=== PATIENT | female | born 1945 | race Caucasian/White ===

== ENCOUNTER → 2016-06-09 | Outpatient (CLI) | payer BC ==
[~2016-06-09] MED LIST: ASPI-461 PO; CHOL2000 PO; COEN200C4 PO; LITH300T2 PO; MUSHROOM PO; OMEGCAP2 PO; RBTDACL PO; SELE200C3 PO; TRAZ1TAB8 PO; TURM1CAP PO; [UNRECOGNIZED DRUG - CODE] PO
== END | disposition home or self-care (01) ==
LOC: C.MAMM 09:33
PROVIDERS: ATTEND Family Medicine
DX: M85.80 Other specified disorders of bone density and structure, unspecified site (principal); Z78.0 Asymptomatic menopausal state; E21.3 Hyperparathyroidism, unspecified; Z87.828 Personal history of other (healed) physical injury and trauma

== ENCOUNTER → 2016-11-13 | Outpatient (CLI) | payer BC ==
--- NOTE | 2016-11-13 12:16 | DIAGNOSTIC IMAGING REPORT ---
CHEST 2 VIEWS ROUTINE CLINICAL HISTORY: R05 CxmllA75.82 Post-nasal dripH57.8 Itchy eyesJ30.9 Allergic rh cough. Dyspnea. COMPARISON STUDY: 05/09/2013 FINDINGS: The bones soft tissues and hemidiaphragms are normal. The cardiomediastinal silhouette is normal. The lungs are clear. The pulmonary vasculature is normal. IMPRESSION: Negative chest. The above report was generated using voice recognition software. It may contain grammatical, syntax or spelling errors. Electronically signed by: Yimi Horner M.D. 11/13/2016 12:15 PM Dictated Date/Time: 11/13/2016 12:14 PM
--- NOTE | 2016-11-13 12:18 | DIAGNOSTIC IMAGING REPORT ---
PARANASAL SINUSES 4 VIEWS CLINICAL HISTORY: Cough. Postnasal drip. Allergic rhinitis. FINDINGS: 4 views of the paranasal sinuses are obtained. No prior studies are available for comparison at the time of dictation. There is no radiographic evidence of paranasal sinus disease. The mastoid air cells appear well-pneumatized. The bony orbits are intact as visualized. The imaged calvarium is within normal limits. Bilateral hearing devices are noted adjacent to the temporal bones. IMPRESSION: There is no radiographic evidence of paranasal sinus disease. Electronically signed by: Efren Martin M.D. 11/13/2016 12:17 PM Dictated Date/Time: 11/13/2016 12:16 PM
== END | disposition home or self-care (01) ==
LOC: C.RAD1850 11:49
PROVIDERS: ATTEND Internal Medicine Pulmonary Disease
DX: R05 Cough (principal); R09.82 Postnasal drip; H57.8 Other specified disorders of eye and adnexa; J30.9 Allergic rhinitis, unspecified

== ENCOUNTER 2019-05-02 17:01 | Observation (INO) ==
[2019-05-02] MEDS ORDERED: SODIUM CHLORIDE 0.9% 1000ML 1,000 ML IV SCH (18:30)
[2019-05-02 18:33] LABS: Basophils # (auto) 0.01 K/uL (0-0.2); Basophils % (auto) 0.2 %; Eosinophils # (auto) 0.05 K/uL (0-0.5); Eosinophils % (auto) 0.8 %; Hematocrit (blood only) 42.2 % (37-47); Hemoglobin 14.5 g/dL (12.0-16.0); Immature Granulocytes # (auto) 0.03 K/uL (0.00-0.02); Immature Granulocytes % (auto) 0.5 %; Lymphocytes # (auto) 0.97 K/uL (1.2-3.4); Lymphocytes % (auto) 16.1 %; Mean Corpuscular Hemoglobin 31.8 pg (25-34); Mean Corpuscular Hgb Conc 34.4 g/dL (32-36); Mean Corpuscular Volume 92.5 fL (80-100); Mean Platelet Volume 9.2 fL (7.4-10.4); Monocytes # (auto) 0.64 K/uL (0.11-0.59); Monocytes % (auto) 10.6 %; Neutrophils # (auto) 4.32 K/uL (1.4-6.5); Neutrophils % (auto) 71.8 %; Platelet Count 336 K/uL (130-400); RDW Coefficient of Variation 13.1 % (11.5-14.5); RDW Standard Deviation 43.9 fL (36.4-46.3); Red Blood Count 4.56 M/uL (4.2-5.4); White Blood Count 6.02 K/uL (4.8-10.8)
[2019-05-02 18:45] LABS: INR 1.1 (0.9-1.1); Prothrombin Time 11.1 Seconds (9.0-12.0)
[2019-05-02 18:49] LABS: Alanine Aminotransferase 38 U/L (12-78); Albumin Level 3.9 gm/dl (3.4-5.0); Aspartate Aminotransferase 20 U/L (15-37); BUN Creatinine Ratio 6.7 (10-20); Blood Urea Nitrogen 8 mg/dl (7-18); Calcium 9.9 mg/dl (8.5-10.1); Carbon Dioxide 27 mmol/L (21-32); Chloride 109 mmol/L (98-107); Est GFR (African American) 52.2; Est GFR (Non-African American) 45.1; Glucose 117 mg/dl (70-99); Potassium 4.2 mmol/L (3.5-5.1); Sodium 141 mmol/L (136-145)
[2019-05-02 18:54] LABS: Albumin Globulin Ratio 1.1 (0.9-2); Alkaline Phosphatase 109 U/L (45-117); Bilirubin,Total 0.3 mg/dl (0.2-1); Globulin 3.5 gm/dl (2.5-4.0); Total Protein 7.4 gm/dl (6.4-8.2); Troponin I < 0.015 ng/ml (0-0.045)
--- NOTE | 2019-05-02 19:02 | CT Scan Report ---
CT head/brain wo con CT DOSE: 638.56 mGycm HISTORY: Mental status change ams TECHNIQUE: Multiaxial CT images of the head were performed without the use of intravenous contrast. A dose lowering technique was utilized adhering to the principles of ALARA. Comparison: None. Findings: The paranasal sinuses and mastoid air cells are clear. Considerable right and to a lesser e xtent left frontal atrophy. Mild chronic small vessel change. The ventricular system is midline. No evidence for acute intracranial hemorrhage. Impression: Frontal lobe atrophy. Chronic small vessel change. No acute process. ACT 112: Negative or not required by law. The above report was generated using voice recognition software. It may contain grammatical, syntax or spelling errors. Electronically signed by: Yimi Horner M.D. 05/02/2019 7:01 PM
--- NOTE | 2019-05-02 19:27 | XRay Report ---
XR chest 1V portable CLINICAL HISTORY: ams mental status change COMPARISON STUDY: 04/26/2019 FINDINGS: The bones soft tissues and hemidiaphragms are normal. The cardiomediastinal silhouette is n ormal. The lungs are clear. The pulmonary vasculature is normal. IMPRESSION: Negative chest. ACT 112: Negative or not required by law. The above report was generated using voice recognition software. It may contain grammatical, syntax or spelling errors. Electronically signed by: Yimi Horner M.D. 05/02/2019 7:26 PM
[2019-05-02] MEDS ORDERED: cefTRIAXone SODIUM 1000MG/50ML D5W IV ONE (20:28)
[2019-05-02] MEDS: cefTRIAXone SODIUM 1,000 MG in DEXTROSE 5% 50 ML IV SCH (20:31)
[2019-05-02 20:33] LABS: Appearance Urine Clear (Clear); Bilirubin Urine Negative (Negative); Blood Urine Negative (Negative); Color Urine Yellow; Glucose Urine UA Negative (Negative); Ketones Urine Negative (Negative); Leukocyte Esterase Urine Negative (Negative); Nitrite Urine Negative (Negative); Protein Urine Negative (Negative); Specific Gravity Urine 1.005 (1.000-1.030); Urobilinogen Urine Negative (Negative); pH Urine 7.5 (4.5-7.5)
--- NOTE | 2019-05-02 21:18 | CT Scan Report ---
CT chest wo con CT DOSE: 184.26 mGy.cm HISTORY: Dyspnea Cough, known influenza, looking for pneumonia. TECHNIQUE: Multiaxial CT images of the chest were performed without contrast. A dose lowering techni que was utilized adhering to the principles of ALARA. COMPARISON: None. FINDINGS: The lungs are clear. The mediastinal vascular structures are within normal limits. No media stinal or hilar lymphadenopathy. No pleural effusion or pneumothorax. Limited views of the upper abdo men demonstrate a normal liver and spleen. IMPRESSION: No acute process. ACT 112: Negative or not required by law. The above report was generated using voice recognition software. It may contain grammatical, syntax or spelling errors. Electronically signed by: Yimi Horner M.D. 05/02/2019 9:17 PM
--- NOTE | 2019-05-02 21:19 | History & Physical Report ---
Date of Service May 02, 2019 Assessment & Plan (1) Confusion: Obs tele May just be secondary to influenza A Also considering UTI or pneumonia. (2) Fever: Check CT of chest. As she is having non-productive cough. Await U/A Continue IV Rocephin until further results noted. (3) Influenza A: Completed course of Tamiflu. (4) Bipolar disorder: Continue Trazodone, oxcarbazepine, and lithium. (5) Hypothyroidism: Continue levothyroxine. History of Present Illness 73 y/o female had recently been treated for + flu A and UTI with Tamiflu and Cefdinir. The patient continues to have confusion per patients . Her temp spikes have been defervescing. did note rigors and increased confusion. She has completed course of Tamiflu. She is continuing with Cefdinir. Patient reports that she has a non-productive cough. Otherwise has mostly been doing better. Primary Care Provider: Kp Tirado MD Allergies Allergy/AdvReac Type Severity Reaction Status Date / Time amitriptyline Allergy Mild RASH Verified 04/26/19 22:16 sulfamethoxazole Allergy Mild RASH Verified 04/26/19 22:16 trimethoprim Allergy Mild RASH Verified 04/26/19 22:16 Bactrim Allergy Unknown RASH Verified 05/10/13 15:59 Home Medications Home Medications Medication Instructions Recorded Confirmed Type ferrous sulfate [iron] 325 mg PO DAILY PRN 09/27/18 05/02/19 History levothyroxine 50 mcg PO QAM 09/27/18 05/02/19 History lithium carbonate 300 mg PO BID 09/27/18 05/02/19 History omega 1-ipa-pkr-fish oil [[place]-3] 1 cap PO DAILY 09/27/18 05/02/19 History oxcarbazepine [Trileptal] 150 mg PO BID 09/27/18 05/02/19 History trazodone 150 mg PO HS 09/27/18 05/02/19 History cefdinir 300 mg PO BID 10 Days #20 cap 04/26/19 05/02/19 Rx Past Med/Surg History Medical History Anemia Depression reason for lithium/trileptal Hearing deficit History of colon polyps Hypothyroidism current levels are normal Insomnia Kidney stones Osteoarthritis Prediabetes Surgical History History of colonoscopy History of dilatation and curettage History of laparoscopy History of surgery on right wrist bone spur removal History of tonsillectomy and adenoidectomy Family History Father Family history of diabetes mellitus Other No family history of adverse response to anesthesia Social History Preferred Language: Tongan Communication Ability: Effective Table Tender Required: No Beliefs That Will Affect Care: None Current Living Situation: Spouse Feels Safe at Home: Yes Safety Concerns: Feels Safe At This Time Smoking Status: Never smoker Second Hand Exposure: Yes (mother smoked) ; Hx Alcohol Use: No Hx Substance Use: No Review of Systems Review of Systems: Constitutional- no weight loss Eyes- no acute visual changes ENT- no sinus drainage; no pharyngitis Pulmonary- As in HPI Cardiac- no chest pain, no palpitations, no orthopnea, no dependent edema GI- no nausea, no vomiting, no diarrhea, no melena, no hematochezia - + chronic dysuria and urgency. Musculoskeletal- no arthralgias, no myalgias Derm- no rashes, no new skin lesions. Hematologic- no unusual bruising, no unusual bleeding Lymphatics- no adenopathy Endocrine- no polyuria or polydipsia; no heat or cold intolerance Neuro- no headaches, no focal neurologic symptoms Psych- no anxiety, no depression Physical Exam Physical Exam: General- adult female, NAD, confused. Head- atraumatic Eyes- PERRL, EOMI, anicteric ENT- oropharynx clear Neck- supple, no JVD, no adenopathy, no thyromegaly. Lungs- CTA b/l No R/R/W. Heart- regular rhythm; no murmur, no gallop, no rub appreciated Abdomen- normal bowel sounds, soft, nontender. Extremities- no pretibial edema, no calf tenderness; peripheral pulses intact Neuro- alert, oriented x 2 (person and place); PERRL, EOMI; no facial palsy; no dysarthria; director of video analytics II-XII grossly intact, non-focal. Skin- warm & dry Results & Data Vital Signs (Past 12 Hours) Vital Signs Temp Pulse Pulse Resp BP BP Pulse Ox 05/02/19 20:06 63 16 156/67 H 96 05/02/19 19:14 59 L 16 168/85 H 96 05/02/19 17:10 36.3 C L 70 18 175/81 H 90 Laboratory Results Laboratory Results WBC 6.02 K/uL (4.8-10.8) 05/02/19 18:25 RBC 4.56 M/uL (4.2-5.4) 05/02/19 18:25 Hgb 14.5 g/dL (12.0-16.0) 05/02/19 18:25 Hct 42.2 % (37-47) 05/02/19 18: MCV 92.5 fL (80-100) 05/02/19 18: MCH 31.8 pg (25-34) 05/02/19 18: MCHC 34.4 g/dL (32-36) 05/02/19 18:25 RDW Std Deviation 43.9 fL (36.4-46.3) 05/02/19 18: RDW Coeff of Vy 13.1 % (11.5-14.5) 05/02/19 18: Plt Count 336 K/uL (130-400) 05/02/19 18: MPV 9.2 fL (7.4-10.4) 05/02/19 18:25 Immature Gran % (Auto) 0.5 % 05/02/19 18:25 Neut % (Auto) 71.8 % 05/02/19 18: Lymph % (Auto) 16.1 % 05/02/19 18:25 [place] % (Auto) 10.6 % 05/02/19 18:25 Eos % (Auto) 0.8 % 05/02/19 18:25 Baso % (Auto) 0.2 % 05/02/19 18: Immature Gran # (Auto) 0.03 K/uL (0.00-0.02) H 05/02/19 18:25 Neut # (Auto) 4.32 K/uL (1.4-6.5) 05/02/19 18:25 Lymph # (Auto) 0.97 K/uL (1.2-3.4) L 05/02/19 18:25 [place] # (Auto) 0.64 K/uL (0.11-0.59) H 05/02/19 18:25 Eos # (Auto) 0.05 K/uL (0-0.5) 05/02/19 18:25 Baso # (Auto) 0.01 K/uL (0-0.2) 05/02/19 18:25 PT 11.1 Seconds (9.0-12.0) 05/02/19 18:25 INR 1.1 (0.9-1.1) 05/02/19 18:25 Sodium 141 mmol/L (136-145) 05/02/19 18:25 Potassium 4.2 mmol/L (3.5-5.1) 05/02/19 18:25 Chloride 109 mmol/L (98-107) H 05/02/19 18:25 Carbon Dioxide 27 mmol/L (21-32) 05/02/19 18:25 Anion Gap 5.0 (3-11) 05/02/19 18:25 BUN 8 mg/dl (7-18) 05/02/19 18:25 Creatinine 1.18 mg/dl (0.6-1.2) 05/02/19 18:25 Est Cr Clr Drug Dosing Not Reportable 05/02/19 18:25 Est GFR ( Amer) 52.2 05/02/19 18:25 Est GFR (Non-Af Amer) 45.1 05/02/19 18:25 BUN/Creatinine Ratio 6.7 (10-20) L 05/02/19 18:25 Glucose 117 mg/dl (70-99) H 05/02/19 18:25 Calcium 9.9 mg/dl (8.5-10.1) 05/02/19 18:25 Total Bilirubin 0.3 mg/dl (0.2-1) 05/02/19 18:25 AST 20 U/L (15-37) 05/02/19 18:25 ALT 38 U/L (12-78) 05/02/19 18:25 Alkaline Phosphatase 109 U/L (45-117) 05/02/19 18:25 Troponin I < 0.015 ng/ml (0-0.045) 05/02/19 18:25 Total Protein 7.4 gm/dl (6.4-8.2) 05/02/19 18:25 Albumin 3.9 gm/dl (3.4-5.0) 05/02/19 18:25 Globulin 3.5 gm/dl (2.5-4.0) 05/02/19 18:25 Albumin/Globulin Ratio 1.1 (0.9-2) 05/02/19 18:25 Urine Color Yellow 05/02/19 20:05 Urine Appearance Clear (Clear) 05/02/19 20:05 Urine pH 7.5 (4.5-7.5) 05/02/19 20:05 Ur Specific [place] 1.005 (1.000-1.030) 05/02/19 20:05 Urine Protein Negative (Negative) 05/02/19 20:05 Urine Glucose (UA) Negative (Negative) 05/02/19 20:05 Urine Ketones Negative (Negative) 05/02/19 20:05 Urine Blood Negative (Negative) 05/02/19 20:05 Urine Nitrite Negative (Negative) 05/02/19 20:05 Urine Bilirubin Negative (Negative) 05/02/19 20:05 Urine Urobilinogen Negative (Negative) 05/02/19 20:05 Ur Leukocyte Esterase Negative (Negative) 05/02/19 20:05 Diagnostic Findings [place], [place] [phone] CT Scan Report Patient: MAX MINOR Date: 05/02/19 MR#: [id number]: [address] Acct ID:[id number]: [facility] Zip: [place] [address] Age: 73Location: ED Sex: F Room/Bed: Att Phy:Diagnosis: BAD FLU, REF BY DOCTOR Kyra Phy: Kp Tirado M.D.Service Date: 05/02/19 Fam Phy:Interpreting Phy: Yimi Horner MD Admit Phy: Ordering Phy: Rinku Harry DO cc: ~ CT head/brain wo con CT DOSE: 638.56 mGycm HISTORY: Mental status change ams TECHNIQUE: Multiaxial CT images of the head were performed without the use of intravenous contrast. A dose lowering technique was utilized adhering to the principles of ALARA. Comparison: None. Findings: The paranasal sinuses and mastoid air cells are clear. Considerable right and to a lesser extent left frontal atrophy. Mild chronic small vessel change. The ventricular system is midline. No evidence for acute intracranial hemorrhage. Impression: Frontal lobe atrophy. Chronic small vessel change. No acute process. ACT 112: Negative or not required by law. The above report was generated using voice recognition software. It may contain grammatical, syntax or spelling errors. Electronically signed by: Yimi Horner M.D. 05/02/2019 7:01 PM Dictated: 05/02/191900 Transcribed: 05/02/191900 [place], [place] [phone] XRay Report Patient: MAX MINOR Date: 05/02/19 MR#: [id number]: [address] Acct ID:[id number]: [facility] Zip: [place] [address] Age: 73Location: ED Sex: F Room/Bed: Att Phy:Diagnosis: BAD FLU, REF BY DOCTOR Kyra Phy: Kp Tirado M.D.Service Date: 05/02/19 Fam Phy:Interpreting Phy: Yimi Horner MD Admit Phy: Ordering Phy: Rinku Harry, cc: ~ XR chest 1V portable CLINICAL HISTORY: ams mental status change COMPARISON STUDY: 04/26/2019 FINDINGS: The bones soft tissues and hemidiaphragms are normal. The cardiomediastinal silhouette is normal. The lungs are clear. The pulmonary vasculature is normal. IMPRESSION: Negative chest. ACT 112: Negative or not required by law. The above report was generated using voice recognition software. It may contain grammatical, syntax or spelling errors. Electronically signed by: Yimi Horner M.D. 05/02/2019 7:26 PM Dictated: 05/02/191925 Transcribed: 05/02/191925 Code Status & VTE Plan VTE Prophylaxis Plan VTE Prophylaxis will be ordered: Yes PG Care Time/CCT Total # of Minutes Spent Total Time Spent: 55 Total Time Spent with Patient: Total time spent is greater than 50% in coordination of care (as documented) at patient's floor/unit and/or counseling patient: (1) Fever Fever type: unspecified Qualified Code(s): R50.9 - Fever, unspecified
[2019-05-02] MEDS ORDERED: ONDANSETRON INJ 2 MG/ML 2 ML VIAL IV PRN (22:37)
[2019-05-02] MEDS ORDERED: ACETAMINOPHEN 325 MG TAB PO PRN (22:37)
[2019-05-02] MEDS ORDERED: HydrALAZINE HCL 20 MG/ML VIAL IV PRN (22:37)
--- NOTE | 2019-05-02 22:45 | Emergency Department Note ---
Entered by Bobby Minaya acting as a scribe for Rinku Harry DO History of Present Illness General Chief complaint: Flu Like Symptoms Stated complaint: BAD FLU, REF BY DOCTOR Source: family () History of Present Illness Onset (ago): week(s) 1 Location: head (flu-like symptoms) Pain Consistency: + other (worsening) Relieved By: + none Associated symptoms: + denies other symptoms (runny nose), + confusion, + cough and + other (shaking); no headaches The patient is a 73 year old F who presents to the Emergency Room with complaints of worsening flu-like symptoms that stared 1 week ago. The majority of the HPI was provided by the patients . He states that the patient symptoms started with a sore throat and a cough, one week ago. He notes that the patient worsened throughout the week and started to experience shaking and confusion. He notes that the patient has a history of memory issues but adds that the patients current confusion is very severe. He states that the patient was seen in the ED recently due to urinary urgency and back pain. He adds that the patient was diagnosed with a UTI and was discharged with antibiotics. He denies that the patient is currently experiencing a runny nose and a headache. Home Medications Home Medications Medication Instructions Recorded Confirmed Type ferrous sulfate [iron] 325 mg PO DAILY PRN 09/27/18 05/02/19 History levothyroxine 50 mcg PO QAM 09/27/18 05/02/19 History lithium carbonate 300 mg PO BID 09/27/18 05/02/19 History omega 0-zab-sav-fish oil [[place]-3] 1 cap PO DAILY 09/27/18 05/02/19 History oxcarbazepine [Trileptal] 150 mg PO BID 09/27/18 05/02/19 History trazodone 150 mg PO HS 09/27/18 05/02/19 History cefdinir 300 mg PO BID 10 Days #20 cap 04/26/19 05/02/19 Rx Allergies Allergy/AdvReac Type Severity Reaction Status Date / Time amitriptyline Allergy Mild RASH Verified 04/26/19 22:16 sulfamethoxazole Allergy Mild RASH Verified 04/26/19 22:16 trimethoprim Allergy Mild RASH Verified 04/26/19 22:16 Bactrim Allergy Unknown RASH Verified 05/10/13 15:59 Past Med/Surg History Medical History Anemia Depression reason for lithium/trileptal Hearing deficit History of colon polyps Hypothyroidism current levels are normal Insomnia Kidney stones Osteoarthritis Prediabetes Surgical History History of colonoscopy History of dilatation and curettage History of laparoscopy History of surgery on right wrist bone spur removal History of tonsillectomy and adenoidectomy Family History Father Family history of diabetes mellitus Other No family history of adverse response to anesthesia Social History Preferred Language: Barbadian Communication Ability: Effective Beliefs That Will Affect Care: None Current Living Situation: Spouse Feels Safe at Home: Yes Smoking Status: Never smoker Second Hand Exposure: Yes (mother smoked) ; Hx Alcohol Use: Yes Alcohol type: wine Hx Substance Use: No Review of Systems See HPI for pertinent positives & negatives. and A total of 10 systems reviewed and were otherwise negative Physical Exam Vital Signs Vital Signs - 24 hr 05/02/19 17:10 05/02/19 19:14 05/02/19 20:06 Temperature 36.3 C L Temperature Source Oral Pulse Rate - Lying 59 L Pulse Rate - Sitting 62 Pulse Rate 70 Pulse Rate [Right] 59 L 63 Pulse Rhythm [Right] Regular Regular Pulse Strength [Right] Normal Normal Respiratory Rate 18 16 16 Respiratory Effort / Characteristics Non-Labored Spontaneous Non-Labored Spontaneous Respiratory Depth Normal Normal Blood Pressure - Lying 168/85 H Blood Pressure - Sitting 191/82 H Blood Pressure 175/81 H Blood Pressure [Right Arm] 168/85 H 156/67 H Blood Pressure Mean 112 Blood Pressure Mean [Right Arm] 112 96 Blood Pressure Position Sitting Blood Pressure Position [Right Arm] Lying Pulse Oximetry 90 96 96 Oxygen Delivery Method Room Air Room Air Sepsis Recent Fever Within 48 Hours No Sepsis New/Unexplained Change in Mental Status No Sepsis Action Taken by Nursing No Action Required GENERAL: sitting up in bed, pleasantly confused, wearing hospital gown, non- toxic EYE EXAM: normal conjunctiva, PERRL and EOM's grossly intact OROPHARYNX: no exudate, no erythema, lips, buccal mucosa, and tongue normal and mucous membranes are moist NECK: supple, no nuchal rigidity, no adenopathy, non-tender LUNGS: Clear to auscultation. Normal chest wall mechanics HEART: no murmurs, S1 normal and S2 normal ABDOMEN: abdomen soft, non-tender, normo-active bowel sounds, no masses, no rebound or guarding. BACK: Back is symmetrical on inspection and there is no deformity, no midline tenderness, no CVA tenderness. SKIN: no rashes and no bruising UPPER EXTREMITIES: upper extremities are grossly normal. LOWER EXTREMITIES: No pitting edema. NEURO EXAM: Not oriented to place, year, or , cranial nerves II-XII grossly intact, normal speech, no weakness of arms, no weakness of legs. No drift. Finger to nose intact. Gross sensation intact. Course Course ED COURSE: Vital signs were reviewed and showed hypertension. The patients medical record was reviewed The above diagnostic studies were performed and reviewed. ED treatments and interventions as stated above. 1811: The patient was evaluated in room C1B. A complete history and physical examination was performed. 1956: The patient is still confused. 2004: I reviewed the patient's case with Dr. Cutler, [facility] Hospitalist. He will evaluate the patient for further management. 2007: Upon reevaluation, the patient is not doing any better. I discussed my findings with the patient's and he understands and agrees with the treatment plan. Based on the patients age, coexisting illnesses, exam and lab findings the decision to treat as an inpatient was made. The patient remained stable while under my care. The patient will be evaluated for further management. Administered Medications Ceftriaxone Sodium 1,000 mg/ (Dextrose) 50 mls @ 100 mls/hr IV Q24H [facility]; Protocol Stop: 05/07/19 20:29 Last Admin: 05/02/19 20:31 Dose: Not Given Documented by: [id number] Discontinued Medications Ceftriaxone Sodium (Rocephin) Confirm Administered Dose 1,000 mg IV .STK-MED ONE Stop: 05/02/19 20:29 Last Admin: 05/02/19 20:31 Dose: 1,000 mg Documented by: [id number] Sodium Chloride (Nss 1000ml) 1,000 mls @ 999 mls/hr IV .Q1H1M MIKI Stop: 05/02/19 19:30 Last Infusion: 05/02/19 20:27 Dose: 0 mls/hr Documented by: [id number] Admin: 05/02/19 19:17 Dose: 999 mls/hr Documented by: [id number] Medical Decision Making Differential Diagnosis Differential diagnoses includes but is not limited to toxic, metabolic, infectious, traumatic, cardiac, neurologic, hematologic, psychiatric and inflammatory etiologies. Medical Records Attestation: I reviewed the patient's medical records. Home Medications Current Medication List: was personally reviewed by me Laboratory Data Attestation: I reviewed the patient's lab results. Result diagrams: 05/02/19 18:25 05/02/19 18:25 Lab Results 05/02/19 05/02/19 05/02/19 Range/Units 18:25 18:25 18:25 WBC 6.02 (4.8-10.8) K/uL RBC 4.56 (4.2-5.4) M/uL Hgb 14.5 (12.0-16.0) g/dL Hct 42.2 (37-47) % MCV 92.5 (80-100) fL MCH 31.8 (25-34) pg MCHC 34.4 (32-36) g/dL RDW Std Deviation 43.9 (36.4-46.3) fL RDW Coeff of Vy 13.1 (11.5-14.5) % Plt Count 336 (130-400) K/uL MPV 9.2 (7.4-10.4) fL Immature Gran % (Auto) 0.5 % Neut % (Auto) 71.8 % Lymph % (Auto) 16.1 % [place] % (Auto) 10.6 % Eos % (Auto) 0.8 % Baso % (Auto) 0.2 % Immature Gran # (Auto) 0.03 H (0.00-0.02) K/uL Neut # (Auto) 4.32 (1.4-6.5) K/uL Lymph # (Auto) 0.97 L (1.2-3.4) K/uL [place] # (Auto) 0.64 H (0.11-0.59) K/uL Eos # (Auto) 0.05 (0-0.5) K/uL Baso # (Auto) 0.01 (0-0.2) K/uL PT 11.1 (9.0-12.0) Seconds INR 1.1 (0.9-1.1) Sodium 141 (136-145) mmol/L Potassium 4.2 (3.5-5.1) mmol/L Chloride 109 H (98-107) mmol/L Carbon Dioxide 27 (21-32) mmol/L Anion Gap 5.0 (3-11) BUN 8 (7-18) mg/dl Creatinine 1.18 (0.6-1.2) mg/dl Est Cr Clr Drug Dosing Not Reportable Est GFR ( Amer) 52.2 Est GFR (Non-Af Amer) 45.1 BUN/Creatinine Ratio 6.7 L (10-20) Glucose 117 H (70-99) mg/dl Calcium 9.9 (8.5-10.1) mg/dl Total Bilirubin 0.3 (0.2-1) mg/dl AST 20 (15-37) U/L ALT 38 (12-78) U/L Alkaline Phosphatase 109 (45-117) U/L Troponin I < 0.015 (0-0.045) ng/ml Total Protein 7.4 (6.4-8.2) gm/dl Albumin 3.9 (3.4-5.0) gm/dl Globulin 3.5 (2.5-4.0) gm/dl Albumin/Globulin Ratio 1.1 (0.9-2) Urine Color Urine Appearance (Clear) Urine pH (4.5-7.5) Ur Specific [place] (1.000-1.030) Urine Protein (Negative) Urine Glucose (UA) (Negative) Urine Ketones (Negative) Urine Blood (Negative) Urine Nitrite (Negative) Urine Bilirubin (Negative) Urine Urobilinogen (Negative) Ur Leukocyte Esterase (Negative) 05/02/19 Range/Units 20:05 WBC (4.8-10.8) K/uL RBC (4.2-5.4) M/uL Hgb (12.0-16.0) g/dL Hct (37-47) % MCV (80-100) fL MCH (25-34) pg MCHC (32-36) g/dL RDW Std Deviation (36.4-46.3) fL RDW Coeff of Vy (11.5-14.5) % Plt Count (130-400) K/uL MPV (7.4-10.4) fL Immature Gran % (Auto) % Neut % (Auto) % Lymph % (Auto) % [place] % (Auto) % Eos % (Auto) % Baso % (Auto) % Immature Gran # (Auto) (0.00-0.02) K/uL Neut # (Auto) (1.4-6.5) K/uL Lymph # (Auto) (1.2-3.4) K/uL [place] # (Auto) (0.11-0.59) K/uL Eos # (Auto) (0-0.5) K/uL Baso # (Auto) (0-0.2) K/uL PT (9.0-12.0) Seconds INR (0.9-1.1) Sodium (136-145) mmol/L Potassium (3.5-5.1) mmol/L Chloride (98-107) mmol/L Carbon Dioxide (21-32) mmol/L Anion Gap (3-11) BUN (7-18) mg/dl Creatinine (0.6-1.2) mg/dl Est Cr Clr Drug Dosing Est GFR ( Amer) Est GFR (Non-Af Amer) BUN/Creatinine Ratio (10-20) Glucose (70-99) mg/dl Calcium (8.5-10.1) mg/dl Total Bilirubin (0.2-1) mg/dl AST (15-37) U/L ALT (12-78) U/L Alkaline Phosphatase (45-117) U/L Troponin I (0-0.045) ng/ml Total Protein (6.4-8.2) gm/dl Albumin (3.4-5.0) gm/dl Globulin (2.5-4.0) gm/dl Albumin/Globulin Ratio (0.9-2) Urine Color Yellow Urine Appearance Clear (Clear) Urine pH 7.5 (4.5-7.5) Ur Specific [place] 1.005 (1.000-1.030) Urine Protein Negative (Negative) Urine Glucose (UA) Negative (Negative) Urine Ketones Negative (Negative) Urine Blood Negative (Negative) Urine Nitrite Negative (Negative) Urine Bilirubin Negative (Negative) Urine Urobilinogen Negative (Negative) Ur Leukocyte Esterase Negative (Negative) Imaging Data Radiologist's Impression: Radiology results as stated below per my review and the radiologist's interpretation: CT head/brain wo con CT DOSE: 638.56 mGycm HISTORY: Mental status change ams TECHNIQUE: Multiaxial CT images of the head were performed without the use of intravenous contrast. A dose lowering technique was utilized adhering to the principles of ALARA. Comparison: None. Findings: The paranasal sinuses and mastoid air cells are clear. Considerable right and to a lesser extent left frontal atrophy. Mild chronic small vessel change. The ventricular system is midline. No evidence for acute intracranial hemorrhage. Impression: Frontal lobe atrophy. Chronic small vessel change. No acute process. ACT 112: Negative or not required by law. The above report was generated using voice recognition software. It may contain grammatical, syntax or spelling errors. Electronically signed by: Yimi Horner M.D. 05/02/2019 7:01 PM XR chest 1V portable CLINICAL HISTORY: ams mental status change COMPARISON STUDY: 04/26/2019 FINDINGS: The bones soft tissues and hemidiaphragms are normal. The cardiomediastinal silhouette is normal. The lungs are clear. The pulmonary vasculature is normal. IMPRESSION: Negative chest. ACT 112: Negative or not required by law. The above report was generated using voice recognition software. It may contain grammatical, syntax or spelling errors. Electronically signed by: Yimi Horner M.D. 05/02/2019 7:[address] chest wo con CT DOSE: 184.26 mGy.cm HISTORY: Dyspnea Cough, known influenza, looking for pneumonia. TECHNIQUE: Multiaxial CT images of the chest were performed without contrast. A dose lowering technique was utilized adhering to the principles of ALARA. COMPARISON: None. FINDINGS: The lungs are clear. The mediastinal vascular structures are within normal limits. No mediastinal or hilar lymphadenopathy. No pleural effusion or pneumothorax. Limited views of the upper abdomen demonstrate a normal liver and spleen. IMPRESSION: No acute process. ACT 112: Negative or not required by law. The above report was generated using voice recognition software. It may contain grammatical, syntax or spelling errors. Electronically signed by: Yimi Horner M.D. 05/02/2019 9:17 PM ECG Data Attestation: I personally reviewed and interpreted this ECG as follows: Indication: + altered mental status Rate (beats per minute): 66 Rhythm: + sinus rhythm ECG Intervals/blocks: + Normal QT-c ECG [place]: + Left axis deviation ECG Findings: + Other (poor baseline) Blood Pressure Blood Pressure Findings: Elevated blood pressure Blood Pressure Disposition: further management by hospitalist MDM Narrative Patient is a 73-year-old female who presents the ER for confusion referred in by PCP. Patient has been sick with a viral URI symptoms for over a week. Patient was seen here just under a week ago and treated for influenza A and combination with a possible UTI although UA was contaminated and there was not enough urine to run in analysis. Upon presentation today she is not oriented to person place or or year. IV was established blood work was obtained and showed no significant leukocytosis or anemia. INR was unremarkable. BMP with slightly elevated glucose. LFTs bilirubin troponin was negative. UA was unremarkable. CT head and chest x-ray were unremarkable. Family was updated at bedside. Patient was given IV fluids. Uncertain of the cause of the confusion if this is a metabolic encephalopathy or related to influenza versus Tamiflu which could be worsening her symptoms as she does have some mild memory issues. Patient was discussed with the hospitalist for observation. Impression & Plan AMS (altered mental status), Influenza, Blood glucose elevated Discharge Plan Visit Data *Final* Discharge Date/Time: 05/02/19 22:18 Chief Complaint: Flu Like Symptoms Stated Complaint: BAD FLU, REF BY DOCTOR ED Provider: Rinku Harry Discharge Problem: AMS (altered mental status), Influenza, Blood glucose elevated Patient Disposition: Admitted As Inpatient Discharge Instructions Interventions: ED Discharge Assessment Last Done: 05/02/19 22:18 Discharge Problem: AMS (altered mental status) Qualifiers: Altered mental status type: unspecified Qualified Code(s): R41.82 - Altered mental status, unspecified The scribe's documentation has been prepared under my direction and personally reviewed by me in its entirety. I confirm that the note above accurately reflects all work, treatment, procedures, and medical decision making performed by me.
[2019-05-02] MEDS: SODIUM CHLORIDE 0.45 % 1,000 ML IV SCH (23:17)
[2019-05-02] MEDS: TRAZODONE HCL 50 MG TAB PO SCH (23:24)
[2019-05-02] MEDS: LITHIUM CARBONATE SLOW REL 300 MG TAB PO SCH (23:24)
[2019-05-02] MEDS: OXcarbazepine 150 MG TABLET PO SCH (23:25)
[2019-05-03] MEDS: LEVOTHYROXINE SODIUM 50 MCG TABLET PO SCH (06:21)
[2019-05-03 06:44] LABS: Hematocrit (blood only) 36.5 % (37-47); Hemoglobin 12.2 g/dL (12.0-16.0); Mean Corpuscular Hgb Conc 33.4 g/dL (32-36); Mean Corpuscular Volume 92.9 fL (80-100); Mean Platelet Volume 9.1 fL (7.4-10.4); Platelet Count 321 K/uL (130-400); RDW Coefficient of Variation 13.1 % (11.5-14.5); RDW Standard Deviation 44.8 fL (36.4-46.3); Red Blood Count 3.93 M/uL (4.2-5.4); White Blood Count 5.47 K/uL (4.8-10.8)
[2019-05-03 07:11] LABS: BUN Creatinine Ratio 7.3 (10-20); Calcium 9.1 mg/dl (8.5-10.1); Creatinine Clr Calc Pharmacy 35.9 ml/min; Est GFR (African American) 58.8; Est GFR (Non-African American) 50.7; Potassium 4.1 mmol/L (3.5-5.1)
[2019-05-03] MEDS: OMEGA-3 (PURIFIED FISH OIL) 1 GM CAP PO SCH (08:04)
[2019-05-03] MEDS: ENOXAPARIN INJ 40 MG/0.4 ML SYR SQ SCH (08:05)
[2019-05-03] MEDS: LITHIUM CARBONATE SLOW REL 300 MG TAB PO SCH ×2 (08:05→20:26)
[2019-05-03] MEDS: OXcarbazepine 150 MG TABLET PO SCH ×2 (08:25→20:26)
[2019-05-03] MEDS: SODIUM CHLORIDE 0.45 % 1,000 ML IV SCH (08:26)
--- NOTE | 2019-05-03 10:33 | Electrocardiogram Report ---
Test Reason : Blood Pressure : / mmHG Vent. Rate : 066 BPM Atrial Rate : 066 BPM P-R Int : 172 ms QRS Dur : 086 ms QT Int : 422 ms P-R-T Axes : 062 -09 051 degrees QTc Int : 442 ms Poor data quality, interpretation may be adversely affected Normal sinus rhythm Normal ECG When compared with ECG of 01-APR-2001 12:02, No significant change was found Confirmed by Hermelindo Nguyen ([id number]) on 05/03/2019 10:32:40 AM Referred By: Kp Tirado Confirmed By:Hermelindo Nguyen
[2019-05-03] MEDS ORDERED: DEXTROSE 5% 1,000 ML IV SCH (13:00)
[2019-05-03] MEDS: cefTRIAXone SODIUM 1,000 MG in DEXTROSE 5% 50 ML IV SCH (20:25)
[2019-05-03] MEDS: TRAZODONE HCL 50 MG TAB PO SCH (20:26)
--- NOTE | 2019-05-03 22:43 | Hospitalist Progress Note ---
Date of Service May 03, 2019 Assessment & Plan (1) Confusion: Obs tele May just be secondary to influenza A UTI seems unlikely given clean urine analysis. No signs of pneumonia. will consider stopping antitbiotic. However, patient diagnosed with UTI on 04/26, today is day 7. (2) Fever: Check CT of chest. As she is having non-productive cough. Continue IV Rocephin until further results noted. (3) Influenza A: Completed course of Tamiflu. (4) Bipolar disorder: Continue Trazodone, oxcarbazepine, and lithium. (5) Hypothyroidism: Continue levothyroxine. Subjective Patient reports no new symptoms today. is at bedside and reports she is more at her baseline at this time. Review of Systems Review of Systems: Constitutional- no weight loss Eyes- no acute visual changes ENT- no sinus drainage; no pharyngitis Pulmonary- As in HPI Cardiac- no chest pain, no palpitations, no orthopnea, no dependent edema GI- no nausea, no vomiting, no diarrhea, no melena, no hematochezia - + chronic dysuria and urgency. Musculoskeletal- no arthralgias, no myalgias Derm- no rashes, no new skin lesions. Hematologic- no unusual bruising, no unusual bleeding Lymphatics- no adenopathy Endocrine- no polyuria or polydipsia; no heat or cold intolerance Neuro- no headaches, no focal neurologic symptoms Psych- no anxiety, no depression Physical Exam Physical Exam: General- adult female, NAD. Head- atraumatic Eyes- PERRL, EOMI, anicteric ENT- oropharynx clear Neck- supple, no JVD, no adenopathy, no thyromegaly. Lungs- CTA b/l No R/R/W. Heart- regular rhythm; no murmur, no gallop, no rub appreciated Abdomen- normal bowel sounds, soft, nontender. Extremities- no pretibial edema, no calf tenderness; peripheral pulses intact Neuro- alert, oriented x 2 (person and place); PERRL, EOMI; no facial palsy; no dysarthria; child health associate II-XII grossly intact, non-focal. Skin- warm & dry Results & Data Vital Signs (Past 12 Hours) Vital Signs Temp Pulse Pulse Resp BP Pulse Ox 05/03/19 20:45 37 C 66 16 161/76 H 95 05/03/19 15:21 57 L 05/03/19 15:15 36.7 C 18 140/76 94 05/03/19 11:12 36.7 C 69 18 173/69 H 97 PG Care Time/CCT Total # of Minutes Spent Total Time Spent with Patient: Total time spent is greater than 50% in coordination of care (as documented) at patient's floor/unit and/or counseling patient: (1) Fever Fever type: unspecified Qualified Code(s): R50.9 - Fever, unspecified
[2019-05-04] MEDS: LEVOTHYROXINE SODIUM 50 MCG TABLET PO SCH (06:06)
[2019-05-04] MEDS: LITHIUM CARBONATE SLOW REL 300 MG TAB PO SCH (07:44)
[2019-05-04] MEDS: OMEGA-3 (PURIFIED FISH OIL) 1 GM CAP PO SCH (07:45)
[2019-05-04] MEDS: OXcarbazepine 150 MG TABLET PO SCH (07:45)
[2019-05-04] MEDS: ENOXAPARIN INJ 40 MG/0.4 ML SYR SQ SCH (07:45)
--- NOTE | 2019-05-11 00:05 | Discharge Summary ---
Date of Service May 04, 2019 Principal Diagnosis confusion Discharge Exam General- adult female, NAD. Head- atraumatic Eyes- PERRL, EOMI, anicteric ENT- oropharynx clear Neck- supple, no JVD, no adenopathy, no thyromegaly. Lungs- CTA b/l No R/R/W. Heart- regular rhythm; no murmur, no gallop, no rub appreciated Abdomen- normal bowel sounds, soft, nontender. Extremities- no pretibial edema, no calf tenderness; peripheral pulses intact Neuro- alert, oriented x 2 (person and place); PERRL, EOMI; no facial palsy; no dysarthria; panel saw operator II-XII grossly intact, non-focal. Skin- warm & dry Discharge Data Allergies Allergy/AdvReac Type Severity Reaction Status Date / Time amitriptyline Allergy Mild RASH Verified 04/26/19 22:16 sulfamethoxazole Allergy Mild RASH Verified 04/26/19 22:16 trimethoprim Allergy Mild RASH Verified 04/26/19 22:16 Bactrim Allergy Unknown RASH Verified 05/10/13 15:59 Consultations 05/02/19 19:58 ED Decision to Admit Stat Ordered Studies 05/02/19 18:18 CT head/brain wo con Stat 05/02/19 20:41 CT chest wo con Stat Hospital Course (1) Confusion: Obs tele May just be secondary to influenza A UTI seems unlikely given clean urine analysis. No signs of pneumonia. However, patient diagnosed with UTI on 04/26, completed treatment. Patient improved with IVF. Doubt Urine was cause of altered mental status. (2) Fever: Check CT of chest. As she is having non-productive cough. Continue IV Rocephin until further results noted. (3) Influenza A: Completed course of Tamiflu. (4) Bipolar disorder: Continue Trazodone, oxcarbazepine, and lithium. (5) Hypothyroidism: Continue levothyroxine. Total Time Total Time Spent Total Time Spent (In Minutes): 32 Total Time Includes: Examination of the Patient, Discharge Planning and Medication Reconciliation Discharge Plan Discharge Items Patient Disposition: Home - Self-Care Reason For Visit: INFLUENZA,CONFUSION Discharge Diagnosis: Influenza Activity: Resume your previous activity Non-emergency contact: Primary Care Provider Call non-emergency contact if: you have any medication questions Follow-up/Referrals: Kp Tirado MD [Primary Care Provider] - 05/09/19 10:30 am (Please, follow up at Dr. Kp Tirado' office with is associate, Dr. Laurent Gupta, on ThursdayMay 09 at 10:30 am. *If you need to change this appointment, call their office at [phone].) Diet: Regular Addtl Attending Provider Instructions: You have been hospitalized for an acute medical problem. During your stay at [facility], we have made an effort to correct the problem that brought you to the hospital while keeping you as comfortable as possible. Medications were used to bring your condition under control and your discharge instructions will include directions for any medications you should take after leaving the hospital. Please make sure you see your Primary Care Provider as part of your follow up plan. Your urine analysis was normal. Doubt you had a UTI while you were here. Pending Studies at Discharge: No Stand-Alone Forms: My [facility], Smoking Cessation Medications and DC Order Prescriptions: Continued peg 3350-electrolytes [Golytely] 236-22.74-6.74 -5.86 gram recon soln 240 ml PO .COMPLEX Qty: 4000 RF: 0 oxcarbazepine [Trileptal] 150 mg Tablet 150 mg PO BID RF: 0 lithium carbonate 300 mg Tablet Extended Release 300 mg PO BID RF: 0 trazodone 100 mg Tablet 150 mg PO HS RF: 0 levothyroxine 50 mcg Tablet 50 mcg PO QAM RF: 0 ferrous sulfate [iron] 325 mg (65 mg iron) Tablet 325 mg PO DAILY PRN (Reason: before giving blood) RF: 0 [place]-3 350 mg-235 mg- 90 mg-597 mg Capsule,Delayed Release(Dr/Ec) 1 cap PO DAILY RF: 0 Discharge Orders: Discharge Order (Routine); Ordered 05/04/19 Ordered By: Anoop Enrique Admission Data Admit Date/Time: 05/02/19 20:17 Attending Provider: Anoop Enrique Admit Provider: Wai Cutler Primary Care Provider: Kp Tirado Other Providers: Wai Cutler Other Interventions: Discharge Summary Assessment (RN) Last Done: 05/04/19 14:28 DC Date/Time DO NOT enter until pt leaves facility: 05/04/19 14:59
== END 2019-05-04 14:59 | disposition home or self-care (01) ==
LOC: ED 17:01 → 2N 17:01 → SUATTDRO 20:17 → 2N 22:18